=== PATIENT | female | born 1995 | race Caucasian/White ===

== ENCOUNTER 2019-06-16 18:40 | Emergency (ER) | payer MEDICAID ==
[2019-06-16 19:14] LABS: #Eosinphils 0.1 thou/uL (0.0-0.7); #Lymphocytes 2.1 thou/uL (1.20-3.40); #Monocytes 1.1 thou/uL (0.11-0.59); #Neutrophils 10.5 thou/uL (1.40-6.50); %Basophils 0.1 % (0.0-1.0); %Eosinophils 0.9 % (0.0-10.0); %Monocytes 8.1 % (0.0-10.0); %Neutrophils 75.9 % (42.0-75.0); Hemoglobin 12.7 g/dL (12.0-16.0); Mean Corpuscular HGB CONC 33.1 g/dL (32.0-36.0); Mean Corpuscular Hemoglobin 31.3 pg (27.0-31.0); Mean Corpuscular Volume 94.4 fL (78.0-98.0); Mean Platelet Volume 7.9 fL (7.4-10.4); Platelet Count 182 thou/uL (130-400); RBC Distribution Width 12.6 % (11.5-14.5); Red Blood Cell (RBC) Count 4.08 mill/uL (4.20-5.40); White Blood Cell (WBC) Count 13.9 thou/uL (4.8-10.8)
[2019-06-16 19:17] LABS: Bacteria/HPF None Seen HPF (None Seen); Bilirubin Negative (Negative); Blood, Urine Negative (Negative); Clarity Turbid (Clear); Glucose, Urine (Dipstick) Normal (Negative); Leukocyte Negative Leu/uL (Negative); Mucous/LPF 1+ LPF (<2+); Nitrite Negative (Negative); Protein, Urine (Dipstick) 30 mg/dL (Neg-Trace); Renal Epithelial 0-3 HPF (None Seen); Urobilinogen Normal mg/dL (Less than 2)
[2019-06-16 19:27] LABS: ALT (SGPT) 10 U/L (8-55); AST (SGOT) 14 U/L (5-34); Albumin 4.4 g/dL (3.5-5.0); Alkaline Phosphatase 52 U/L (40-110); Anion Gap 13 mmol/L (10-20); BUN (Urea Nitrogen) 10 mg/dL (7.0-18.7); Bilirubin, Total 0.5 mg/dL (0.2-1.2); Calc. Creatinine Clearance 0 mL/min (70-130); Calcium 9.3 mg/dL (7.8-10.44); Carbon Dioxide 23 mmol/L (22-29); Chloride 104 mmol/L (98-107); Estimated GFR-MDRD Greater than 90; Globulin 2.4 g/dL (2.4-3.5); Glucose 79 mg/dL (70-105); Potassium 3.6 mmol/L (3.5-5.1); Protein, Total 6.8 g/dL (6.0-8.3); Sodium 136 mmol/L (136-145)
--- NOTE | 2019-06-16 19:43 | ULT ---
ULTRASOUND PELVIC ULTRASOUND TRANSVAGINAL DOPPLER DUPLEX: DATE: 06/16/2019 HISTORY: 24-year-old female in first trimester experiencing pelvic pain TECHNIQUE: Transabdominal transducer and endovaginal transducer used to visualize intrapelvic contents with mcgee scale, color-flow, and spectral analysis. FINDINGS: Uterus: 7.5 x 5 x 4.5 cm. Intrauterine gestational sac towards fundus with slightly abnormal elongated shape. Yolk sac present. Embryonic pole present. [place]-rump length: 1.2 cm: 7 weeks 3 days. heart rate: 141 bpm Small amounts of subchorionic hemorrhage. No free fluid in cul-de-sac. Right ovary: 3.7 x 2.3 x 2.7 cm. Left ovary: 1.3 x 2.5 x 1.5 cm. Blood flow demonstrated in both ovaries by Doppler. Dilated veins in left adnexa. 1.4 x 1.2 cm right ovarian cyst, probably corpus luteal cyst. IMPRESSION: 1) live first trimester intrauterine gestation estimated to be 7 weeks 3 days gestational age. 2) small amount of subchorionic hemorrhage 3) dilated left adnexal and parametrial veins raising the possibility of pelvic congestion syndrome.
[2019-06-17 18:54] LABS: Chlamydia by PCR Not Detected (NotDetected); GC by PCR Not Detected (NotDetected)
== END 2019-06-16 20:02 | disposition home or self-care (01) ==
LOC: ERS 18:40
DX: O20.0 Threatened abortion (principal); Z3A.01 Less than 8 weeks gestation of pregnancy
CPT/HCPCS: 36415; 76856; 80053; 81003; 81015; 84702; 85025; 87480; 87491; 87510; 87591; 87660

== ENCOUNTER 2019-06-18 18:18 | Emergency (ER) | payer MEDICAID | END 2019-06-18 21:01 | LOC: ERS 18:18 | DX: O26.891 Other specified pregnancy related conditions, first trimester (principal); R10.9 Unspecified abdominal pain | CPT/HCPCS: 36415; 84702; 99284 ==